=== PATIENT | female | born 1970 | race Asian ===

== ENCOUNTER 2017-08-04 11:53 | Day surgery (SDC) | payer BC ==
[2017-08-04 12:22] LABS: Absolute Monocytes 0.5 K/uL (0.1-1.3); Absolute Neutrophil 12.2 K/uL (1.8-8.0); Basophils % 0.3 % (0-1.3); Eosinophils % 0.1 % (0-4.4); Hematocrit 35.8 % (36.0-45.0); Lymphocytes % 7.1 % (15.3-44.8); MCH 30.5 pg (27.0-35.0); MCV 90.9 fL (80-100); Monocytes % 3.6 % (3.3-12.3); RBC Red Blood Cell Count 3.94 M/uL (3.86-4.86)
[2017-08-04 12:23] LABS: Specific Gravity >= 1.030 (1.005-1.030)
[2017-08-04] MEDS ORDERED: Ringers Lactate 1,000 ML IV ONE (12:24)
[2017-08-04] MEDS ORDERED: CEFAZOLIN/SWI 1gm 1 GM/10 ML SYR ONE (12:25)
[2017-08-04] MEDS ORDERED: ONDANSETRON 4 MG/2 ML VIAL ONE (14:52)
[2017-08-04] MEDS ORDERED: MIDAZOLAM HCL 2 MG/2 ML INJ ONE ×2 (14:52→15:57)
[2017-08-04] MEDS ORDERED: PROPOFOL 200 MG/20 ML VIAL IV ONE (14:59)
[2017-08-04 15:00] LABS: Blood Morphology Comment NOT SEEN (NOT SEEN); Platelet Estimate ADEQ; Urine White Blood Cell Casts OK
[2017-08-04] MEDS ORDERED: FENTANYL CITR 100 MCG/2 ML ONE (15:00)
[2017-08-04] MEDS ORDERED: LIDOCAINE 2% MPF 5 ML VIAL ONE (15:00)
[2017-08-04] MEDS ORDERED: LIDOCAINE 1% W/EPI 1:100,000 MDV 50 ML VIAL ONE (15:12)
[2017-08-04] MEDS ORDERED: KETOROLAC 30 MG/ML INJ ONE (16:30)
--- NOTE | 2017-10-02 01:49 | OP ---
Date of Procedure: 08/04/2017 Surgeon: Raina Huitron MD Preoperative Diagnosis: Right labial abscess. Postoperative Diagnosis: Right Bartholin's gland abscess. Procedures Performed: Incision and drainage of the Bartholin's gland abscess on the right and marsup ialization. Anesthesia: General. Complications: None. Specimens: Right Bartholin's biopsy. Estimated Blood Loss: Minimal. Drains: None. Packing was placed in the Bartholin's gland. 1/4th inch non-iodoform Nu Gauze. Description Of Procedure: After informed consent was verified, she was brought to the OR. 1 g of An cef was given and she was placed in a dorsal lithotomy position. After general anesthesia was given, pelvic exam was performed and normal. The abscess appeared to be clearly of Bartholin's gland absce ss. The vulva, vagina, and perineum were prepped and draped in a sterile fashion. Royal was used to stra ight cath her and a medial incision was made on the abscess to the inner aspect of the labia minora i n order to drain this. Once the pocket was opened up and the , the abscess drained very we ll. Then, the base of the wall of the gland was intact and this was biopsied too since the patient w as over the age of 40 to rule out adenocarcinoma of the Bartholin's gland. A 3-0 Vicryl sutures were taken, and after the entire drainage was done, the edges were br ought with the help of eight 3-0 Vicryl sutures. Packing was placed and there was no bleeding. Inst rument, needle, and sponge counts were correct at the end of the case. She tolerated the procedure w ell. She was recovered from anesthesia and taken to PACU in stable condition. IVANA/RENETTA Voice ID: [id number] Report ID: [id number]
--- NOTE | 2017-10-06 15:37 | OP ---
Date of Procedure: 08/04/2017 Surgeon: Raina Huitron MD Preoperative Diagnosis: Right labial abscess. Postoperative Diagnosis: Right Bartholin's gland abscess. Procedures Performed: Incision and drainage of the Bartholin's gland abscess on the right and marsup ialization. Anesthesia: General. Complications: None. Specimens: Right Bartholin's biopsy. Estimated Blood Loss: Minimal. Drains: None. Packing was placed in the Bartholin's gland. 1/4th inch non-iodoform Nu Gauze. Description Of Procedure: After informed consent was verified, she was brought to the OR. 1 g of An cef was given and she was placed in a dorsal lithotomy position. After general anesthesia was given, pelvic exam was performed and normal. The abscess appeared to be clearly of Bartholin's gland absce ss. The vulva, vagina, and perineum were prepped and draped in a sterile fashion. Royal was used to stra ight cath her and a medial incision was made on the abscess to the inner aspect of the labia minora i n order to drain this. Once the pocket was opened up and Allis clamps used to cut, the abscess drain ed very well. Then, the base of the wall of the gland was intact and this was biopsied too since the patient was over the age of 40 to rule out adenocarcinoma of the Bartholin's gland. A 3-0 Vicryl sutures were taken, and after the entire drainage was done, all draining edges were brou ght with the help of eight 3-0 Vicryl sutures. Packing was placed and there was no bleeding. Instru ment, needle, and sponge counts were correct at the end of the case. She tolerated the procedure wel l. She was recovered from anesthesia and taken to PACU in stable condition. IVANA/RENETTA Voice ID: [id number] Report ID: [id number]
== END 2017-08-04 18:11 | disposition home or self-care (01) ==
LOC: OR 11:53
PROVIDERS: ATTEND Obstetrics & Gynecology
PROC: 0U9L0ZZ Drainage of Vestibular Gland, Open Approach (ICD-10-PCS; principal; 2017-08-04 13:00)
DX: N75.1 Abscess of Bartholin's gland (principal)
CPT/HCPCS: 36415; 81025; 85025; J0690; J2250; J2405; J3010